=== PATIENT | female | born 1985 | race Caucasian/White ===

== ENCOUNTER 2023-01-15 20:30 | Outpatient (REF) | payer OTHER, SELFPAY ==
[2023-01-19 15:09] LABS: Age Gdln ACOG Testing Note (.); HPV Aptima Positive (Negative); IGP, Aptima HPV, rfx 16/18,45 Note (.)
== END 2023-01-15 20:31 | disposition home or self-care (01) ==
LOC: LAB 20:30
PROVIDERS: Visit Provider Obstetrics & Gynecology
DX: Z01.419 Encounter for gynecological examination (general) (routine) without abnormal findings (principal)
CPT/HCPCS: 87624; G0145

== ENCOUNTER 2023-02-26 11:22 | Outpatient (REF) | payer OTHER, SELFPAY ==
--- OUTSIDE RECORDS SUMMARY | 2023-04-20 11:25 | XMS_ITS | CCD ---
Author Name Unknown Address [address] [place] [address] Organization [facility] Care Team Providers Care Brand Mgr Name Role Phone JOAO, DR FRANCY Lomax Consulting Unavailable ALBERTO, DR BRYAN Attending Unavailable REQUEST, DR CASTELLANOS LISTED Primary Care Unavaila ble ALBERTO, DR BRYAN Admitting Unavailable ALBERTO, DR BRYAN Consulting Unavailable WEST, DR FRANCY Lomax Consulting Unavailable ALBERTO, DR BRYAN Attending Unavailable REQUEST, DR CASTELLANOS LISTED Primary Care Unavaila ble ALBERTO, DR BRYAN Admitting Unavailable ALBERTO, DR BRYAN Consulting Unavailable ALBERTO, DR BRYAN Attending Unavailable REQUEST, DR CASTELLANOS LISTED Primary Care Unavaila ble ALBERTO, DR BRYAN Admitting Unavailable ALBERTO, DR BRYAN Attending Unavailable REQUEST, DR CASTELLANOS LISTED Primary Care Unavaila ble ALBERTO, DR BRYAN Admitting Unavailable REQUEST, DR CASTELLANOS LISTED Primary Care Unavaila ble ALBERTO, DR BRYAN Consulting Unavailable ALBERTO, DR BRYAN Attending Unavailable ALBERTO, DR BRYAN Admitting Unavailable ALBERTO, DR BRYAN Attending Unavailable REQUEST, DR CASTELLANOS LISTED Primary Care Unavaila ble ALBERTO, DR BRYAN Admitting Unavailable ALBERTO, DR BRYAN Consulting Unavailable ALBERTO, DR BRYAN Attending Unavailable KARASIK, DR DU Consulting Unavailable REQUEST, DR CASTELLANOS LISTED Primary Care Unavaila ble ALBERTO, DR BRYAN Admitting Unavailable ALBERTO, DR BRYAN Consulting Unavailable ALBERTO, DR BRYAN Procedure Practitioner Unavailab le IRVIN DOMINGUEZ Attending Unavailable MALI CORCORAN Attending Unavailable ALBERTO, IRVIN Attending Unavailable IRVIN DOMINGUEZ Referring Unavailable Problems Active Problems Problem Classification Problem Date Documented Date Episodic/Chronic Esophageal disorders (1 source) Gastro-esophageal reflux disease without esophagitis; Translations: [GERD WITHOUT ESOPHAGITIS] Onset: 04-06-2021 Chronic Immunizations and screening for infectious disease (1 source) Encounter for screening for human papillomavirus (HPV); Translations: [ENC SCREENING HUMAN PAPILLOMAVIRUS] Onset: 01-06-2022 Episodic Other screening for suspected conditions (not mental disorders or infectious disease) (4 sources) Encounter for screening for malignant neoplasm of cervix; Translations: [ENC SCREENING MALIG NEOPLASM CERV] Onset: 01-03-2022 Episodic Unclassified (1 source) CONTACT W/AND (SUSP) EXPOS COVID-19; Translations: [CONTACT W/AND (SUSP) EXPOS COVID-19] Onset: 04-06-2021 Viral infection (1 source) Herpesviral infection of urogenital system, unspecified; Translations: [HERPESVIRAL INF UROGENITAL SYS UNS] Onset: 04-06-2021 Chronic Past or Other Problems Problem Classification Problem Date Documented Date Episodic/Chronic OB-related trauma to perineum and vulva (1 source) First degree perineal laceration during delivery; Translations: [FIRST DEG PERINEAL LAC DUR DELIV] Onset: 04-06-2021 Episodic Other complications of ; puerperium affecting management of mother (3 sources) Abnormality in heart rate and rhythm complicating labor and delivery; Translations: [ABN FETL HEART RATE RHYTHM COMP L AND D] Onset: 03-30-2021 Episodic Other complications of ; puerperium affecting management of mother (1 source) Other infections with a predominantly sexual mode of transmission complicating childbirth; Translations: [OTH INF SEXL TRNSMS COMP CHILDBIRTH] Onset: 04-06-2021 Episodic Other complications of ; puerperium affecting management of mother (1 source) Diseases of the digestive system complicating childbirth; Translations: [DZ DIGESTIVE SYSTEM COMP CHILDBIRTH] Onset: 04-06-2021 Episodic Other complications of (4 sources) Maternal care for abnormalities of the heart rate or rhythm, third trimester, not applicable or unspecified; Translations: [MTRN CARE ABN FHR/R 3RD TRI NA/UNS] Onset: 03-29-2021 Episodic Other and delivery including normal (13 sources) Encounter for care and examination of lactating mother; Translations: [Encounter for routine follow-up] Onset: 03-09-2021 Episodic Residual codes; unclassified (1 source) 39 weeks gestation of ; Translations: [39 WEEKS GESTATION OF ] Onset: 04-06-2021 Episodic Residual codes; unclassified (1 source) 38 weeks gestation of ; Translations: [38 WEEKS GESTATION OF ] Onset: 03-23-2021 Episodic Residual codes; unclassified (1 source) 36 weeks gestation of ; Translations: [36 WEEKS GESTATION OF ] Onset: 03-11-2021 Episodic Screening and history of mental health and substance abuse codes (1 source) Personal history of nicotine dependence; Translations: [PERSONAL HISTORY OF NICOTINE DEPEND] Onset: 04-06-2021 Episodic Results Test Name Value Interpretation Reference Range Facility US PELVISon 01-29-2023 US PELVIS US PELVIS : 01/30/20 23 11:27 AM CLINICAL HISTORY: pelvic pain. COMPARISON: None available. TECHNIQUE: Transabdominal ultrasound was performed of the pelvis. FINDINGS: The uterus is normal in appearance anteverted in position, measuring approximately 7.6 x 4.8 x 3 cm cm. The central endometrial complex is not thickened nearly homogeneous in echotexture, measuring 4 mm mm in combined thickness near the fundus. There is no significant free pelvic fluid or other findings of concern identified. The right ovary measures 2.1 x 2.1 x 1.1 cm, for a volume of approximately 2.5 mL. The left ovary measures 1.97 x 2.3 x 1.3 cm, for a volume of approximately 3.0 mL. There is equivalent blood flow to both ovaries on Doppler analysis. IMPRESSION: THE EXAMINATION IS UNREMARKABLE ELECTRONICALLY SIGNED BY: Avelina Nielson, DO Normal Not Available BI MAMMOGRAM SCREENING TOMOS SATURNINO BILATERALon 01-15-2023 BI MAMMOGRAM SCREENING TOMOSYNTHESIS BILATERAL This is a summary report. The complete report is available in the patient's medical record. If you cannot access the medical record, please contact the sending organization for a detailed fax or copy. EXAMINATION: BI MAMMOGRAM SCREENING TOMOSYNTHESIS BILATERAL CLINICAL HISTORY: screening COMPARISON: There are no previous mammograms available for comparison. RESULT: Digital mammography and 3D tomosynthesis of bilateral breasts was performed. There are scattered areas of fibroglandular density. There is no suspicious mass, asymmetry, architectural distortion, or calcification. IMPRESSION: BIRADS 1 - Negative. Follow-up: Routine Screening Mamm . Board Certified Radiologists. Accredited by the ACR and FDA. MAMMOGRAPHY IS VERY IMPORTANT TO YOUR HEALTH. THE [employer] GUIDELINES RECOMMEND THAT WOMEN 40 YEARS OF AGE AND OLDER SHOULD HAVE A MAMMOGRAM EVERY YEAR. A REMINDER LETTER WILL BE SENT AT THE APPROPRIATE TIME. THIS FACILITY UTILIZES A REMINDER SYSTEM TO ENSURE ALL PATIENTS RECEIVE REMINDER NOTIFICATIONS AT THE APPROPRIATE TIME BASED ON THE RECOMMENDATIONS OF THIS EXAM. THIS INCLUDES REMINDERS FOR ROUTINE SCREENING MAMMOGRAMS, DIAGNOSTIC MAMMOGRAMS IN WHICH THE PATIENT IS ASKED TO RETURN FOR ADDITIONAL VIEWS, OR OTHER BREAST IMAGING INTERVENTIONS WHEN APPROPRIATE. THE PATIENT WILL BE PLACED IN THE APPROPRIATE REMINDER SYSTEM INCLUDING A REMINDER AT THE APPROPRIATE TIME FOR ANY PENDING ADDITIONAL VIEWS. TRANSCRIBED BY: ELECTRONICALLY SIGNED BY: Leonard Finnegan MD Normal Not Available PAP ACOG PANEL 2: 30 to 65on 01-11-2022 . . Normal [facility] Comment on above: Result Comment: Perf ormed at: WB Performed By: #### [id number] #### [facility] [address] [address] [address] Airam Grant Age Gdln ACOG Testing - Normal [facility] Comment on above: Performed By: #### [id number] #### [facility] [address] [address] [address] Airam Grant DIAGNOSIS: Comment Normal [facility] Comment on above: Result Comment: NEGA TIVE FOR INTRAEPITHELIAL LESION OR MALIGNANCY. Performed at: WB Performed By: #### [id number] #### [facility] [address] [address] [address] Airam Grant HPV Aptima Negative Normal Negative [facility] Comment on above: Result Comment: This nucleic acid amplification test detects fourteen high-risk HPV types (16,18,31,33,35,39,45,51,52,56,58,59,66,68) without differentiation. Performed at: =G Performed By: #### [id number] #### [facility] [address] [address] [address] Airam Grant HPV Genotype Reflex Comment Normal [facility] Comment on above: Result Comment: Crit eria not met, HPV Genotype not performed. Performed at: WB Performed By: #### [id number] #### [facility] [address] [address] [address] Airam Grant Methodology: Comment Normal [facility] Comment on above: Result Comment: This liquid based ThinPrep(R) pap test was screened with the use of an image guided system. Performed at: WB Performed By: #### [id number] #### [facility] [address] [place] [address] Dr. Airam Grant Note: Comment Normal [facility] Comment on above: Result Comment: The Pap smear is a screening test designed to aid in the detection of premalignant and malignant conditions of the uterine cervix. It is not a diagnostic procedure and should not be used as the sole means of detecting cervical cancer. Both false-positive and false-negative reports do occur. . Performed at: WB Performed By: #### [id number] #### [facility] [address] [place] [address] Dr. Airam Grant Performed by: Comment Normal [facility] Comment on above: Result Comment: Jud Martin Certified Veterinary Technician (ASCP) Performed at: WB Performed By: #### [id number] #### [facility] [address] [place] [address] Dr. Airam Grant Specimen adequacy: Comment Normal [facility] Comment on above: Result Comment: Sati sfactory for evaluation. Endocervical and/or squamous metaplastic cells (endocervical component) are present. Performed at: WB Performed By: #### [id number] #### [facility] [address] [place] [address] Dr. Airam Grant CBC AUTO DIFFon 04-01-2021 BASO # 0.1 103/ul Normal 0.0-0.1 [facility] Comment on above: Performed By: #### C BC #### [facility] [address] [place] [address] Dr. Airam Grant Basophils/100 WBC (Bld) 0.4 % Normal 0.2-2.0 [facility] Comment on above: Performed By: #### C BC #### [facility] [address] [place] [address] Dr. Airam Grant EO # 0.1 103/ul Normal 0.0-0.7 [facility] Comment on above: Performed By: #### C BC #### [facility] [address] [place] [address] Dr. Airam Grant Eosinophils/100 WBC (Bld) 0.9 % Normal 0.9-7.0 [facility] Comment on above: Performed By: #### C BC #### [facility] [address] [place] [address] Dr. Airam Grant Erythrocyte distribution width (RBC) [Ratio] 14.6 % Normal 11.0-15.0 [facility] Comment on above: Performed By: #### C BC #### [facility] [address] [place] [address] Dr. Airam Grant Hematocrit (Bld) [Volume fraction] 32.9 % Critically low 36.0-48.0 [facility] Comment on above: Performed By: #### C BC #### [facility] [address] [place] [address] Dr. Airam Grant Hemoglobin (Bld) [Mass/Vol] 10.7 g/dL Critically low 12.0-16.0 [facility] Comment on above: Performed By: #### C BC #### [facility] [address] [place] [address] Dr. Airam Grant IG # 0.04 10e3/ul Critically high 0.00-0.03 [facility] Comment on above: Performed By: #### C BC #### [facility] [address] [place] [address] Dr. Airam Grant IG % 0.3 % Normal 0.0-0.5 [facility] Comment on above: Performed By: #### C BC #### [facility] [address] [place] [address] Dr. Airam Grant LYMPH # 2.2 103/ul Normal 1.2-3.8 [facility] Comment on above: Performed By: #### C BC #### [facility] [address] [place] [address] Dr. Airam Grant Lymphocytes/100 WBC (Bld) 18.9 % Critically low 20.5-60.0 [facility] Comment on above: Performed By: #### C BC #### [facility] [address] [place] [address] Dr. Airam Grant MANUAL DIFF REQ NO Normal [facility] Comment on above: Performed By: #### C BC #### [facility] [address] [place] [address] Dr. Airam Grant MCH (RBC) [Entitic mass] 28.5 pg Normal 26.7-34.0 [facility] Comment on above: Performed By: #### C BC #### [facility] [address] [place] [address] Dr. Airam Grant MCHC (RBC) [Mass/Vol] 32.5 g/dL Normal 29.9-35.2 [facility] Comment on above: Performed By: #### C BC #### [facility] [address] [place] [address] Dr. Airam Grant MCV (RBC) [Entitic vol] 87.7 fL Normal 81.0-99.0 [facility] Comment on above: Performed By: #### C BC #### [facility] [address] [place] [address] Dr. Airam Grant MONO # 0.6 103/ul Normal 0.3-0.8 [facility] Comment on above: Performed By: #### C BC #### [facility] [address] [place] [address] Dr. Airam Grant Monocytes/100 WBC (Bld) 5.0 % Normal 1.7-12.0 [facility] Comment on above: Performed By: #### C BC #### [facility] [address] [place] [address] Dr. Airam Grant NEUT # 8.7 103/ul Critically high 1.4-6.5 [facility] Comment on above: Performed By: #### C BC #### [facility] [address] [place] [address] Dr. Airam Grant Neutrophils/100 WBC (Bld) 74.5 % Normal 43.0-75.0 [facility] Comment on above: Performed By: #### C BC #### [facility] [address] [address] [address] Airam Grant Platelet mean volume (Bld) [Entitic vol] 10.0 fL Normal 9.5-13.5 [facility] Comment on above: Performed By: #### C BC #### [facility] [address] [place] [address] Dr. Airam Grant PLT 303 103/ul Normal 150-450 [facility] Comment on above: Performed By: #### C BC #### [facility] [address] [address] [address] Airam Grant RBC 3.75 106/ul Critically low 4.20-5.40 [facility] Comment on above: Performed By: #### C BC #### [facility] [address] [place] [address] Dr. Airam Grant WBC 11.6 103/ul Critically high 4.0-11.0 [facility] Comment on above: Performed By: #### C BC #### [facility] [address] [place] [address] Dr. Airam Grant LDHon 04-01-2021 LDH 233 U/L Critically high 122-222 [facility] Comment on above: Performed By: #### U YUNIOR, LDH, AST, ALT #### [facility] [address] [place] [address] Dr. Airam Grant SGOTon 04-01-2021 AST [Catalytic activity/Vol] 25 U/L Normal 14-36 [facility] Comment on above: Performed By: #### G BSCX #### [facility] [address] [place] [address] Dr. Airam Grant SGPTon 04-01-2021 ALT [Catalytic activity/Vol] 20 U/L Normal 9-52 [facility] Comment on above: Performed By: #### U YUNIOR, LDH, AST, ALT #### [facility] [address] [place] [address] Dr. Airam Grant URIC ACID SERUMon 04-01-2021 Urate [Mass/Vol] 4.1 mg/dL Normal 2.5-6.2 [facility] Comment on above: Performed By: #### U YUNIOR, LDH, AST, ALT #### [facility] [address] [place] [address] Dr. Airam Grant ASYMPTOMATIC COVID-19 ANTIGE Non 03-30-2021 EUA Statement SEE BELOW Normal [facility] Comment on above: Result Comment: This test has not been FDA cleared or approved, but has been authorized by the FDA under an Emergency Use Authorization (EUA) for use by authorized laboratories certified under CLIA that meet the requirements to perform moderate or high complexity testing. This test has been authorized only for the detection of proteins from SARS-CoV-2, not for any other viruses or pathogens. The emergency use of this test is authorized for the duration of the declaration that circumstances exist justifying the authorization of emergency use of in vitro diagnostic tests for detection and/or diagnosis of Covid-19 under section 564(b)(1) of the Act, 21 U.S.C. 360bbb-3(b)(1), unless the declaration is terminated or authorization is revoked sooner. Performed By: #### G BSCX #### [facility] [address] [place] [address] Dr. Airam Grant SARS-CoV-2 (COVID-19) RNA [place]+probe Ql (Unsp spec) Negative Normal NEGATIVE [facility] Comment on above: Result Comment: Nega tive results are presumptive. They do not preclude infection and should not be used as the sole basis for treatment decisions. Additional confirmatory testing by a molecular method should be considered. Performed By: #### G BSCX #### [facility] [address] [place] [address] Dr. Airam Grant CBC AUTO DIFFon 03-30-2021 BASO # 0.0 103/ul Normal 0.0-0.1 [facility] Comment on above: Performed By: #### C BC #### [facility] [address] [place] [address] Dr. Airam Grant Basophils/100 WBC (Bld) 0.3 % Normal 0.2-2.0 [facility] Comment on above: Performed By: #### C BC #### [facility] [address] [place] [address] Dr. Airam Grant EO # 0.2 103/ul Normal 0.0-0.7 [facility] Comment on above: Performed By: #### C BC #### [facility] [address] [place] [address] Dr. Airam Grant Eosinophils/100 WBC (Bld) 1.7 % Normal 0.9-7.0 [facility] Comment on above: Performed By: #### C BC #### [facility] [address] [place] [address] Dr. Airam Grant Erythrocyte distribution width (RBC) [Ratio] 14.4 % Normal 11.0-15.0 [facility] Comment on above: Performed By: #### C BC #### [facility] [address] [place] [address] Dr. Airam Grant Hematocrit (Bld) [Volume fraction] 35.1 % Critically low 36.0-48.0 [facility] Comment on above: Performed By: #### C BC #### [facility] [address] [place] [address] Dr. Airam Grant Hemoglobin (Bld) [Mass/Vol] 11.5 g/dL Critically low 12.0-16.0 [facility] Comment on above: Performed By: #### C BC #### [facility] [address] [place] [address] Dr. Airam Grant IG # 0.03 10e3/ul Normal 0.00-0.03 [facility] Comment on above: Performed By: #### C BC #### [facility] [address] [place] [address] Dr. Airam Grant IG % 0.3 % Normal 0.0-0.5 [facility] Comment on above: Performed By: #### C BC #### [facility] [address] [place] [address] Dr. Airam Grant LYMPH # 2.0 103/ul Normal 1.2-3.8 [facility] Comment on above: Performed By: #### C BC #### [facility] [address] [place] [address] Dr. Airam Grant Lymphocytes/100 WBC (Bld) 22.7 % Normal 20.5-60.0 [facility] Comment on above: Performed By: #### C BC #### [facility] [address] [place] [address] Dr. Airam Grant MANUAL DIFF REQ NO Normal [facility] Comment on above: Performed By: #### C BC #### [facility] [address] [place] [address] Dr. Airam Grant MCH (RBC) [Entitic mass] 28.8 pg Normal 26.7-34.0 [facility] Comment on above: Performed By: #### C BC #### [facility] [address] [place] [address] Dr. Airam Grant MCHC (RBC) [Mass/Vol] 32.8 g/dL Normal 29.9-35.2 [facility] Comment on above: Performed By: #### C BC #### [facility] [address] [place] [address] Dr. Airam Grant MCV (RBC) [Entitic vol] 88.0 fL Normal 81.0-99.0 [facility] Comment on above: Performed By: #### C BC #### [facility] [address] [place] [address] Dr. Airam Grant MONO # 0.5 103/ul Normal 0.3-0.8 [facility] Comment on above: Performed By: #### C BC #### [facility] [address] [place] [address] Dr. Airam Grant Monocytes/100 WBC (Bld) 5.5 % Normal 1.7-12.0 [facility] Comment on above: Performed By: #### C BC #### [facility] [address] [place] [address] Dr. Airam Grant NEUT # 6.3 103/ul Normal 1.4-6.5 [facility] Comment on above: Performed By: #### C BC #### [facility] [address] [place] [address] Dr. Airam Grant Neutrophils/100 WBC (Bld) 69.5 % Normal 43.0-75.0 [facility] Comment on above: Performed By: #### C BC #### [facility] [address] [address] [address] Airam Grant Platelet mean volume (Bld) [Entitic vol] 10.5 fL Normal 9.5-13.5 [facility] Comment on above: Performed By: #### C BC #### [facility] [address] [address] [address] Airam Grant PLT 321 103/ul Normal 150-450 [facility] Comment on above: Performed By: #### C BC #### [facility] [address] [address] [address] Airam Grant RBC 3.99 106/ul Critically low 4.20-5.40 [facility] Comment on above: Performed By: #### C BC #### [facility] [address] [address] [address] Airam Grant WBC 9.0 103/ul Normal 4.0-11.0 [facility] Comment on above: Performed By: #### C BC #### [facility] [address] [address] [address] Airam Grant DRUG SCREEN RAPID (URINE)on 03-30-2021 AMP Negative Normal NEGATIVE [facility] Comment on above: Performed By: #### D RUGRPD #### [facility] [address] [address] [address] Airam Grant BAR Negative Normal NEGATIVE [facility] Comment on above: Performed By: #### D RUGRPD #### [facility] [address] [address] [address] Airam Grant BUP Negative Normal NEGATIVE The [facility] Comment on above: Performed By: #### D RUGRPD #### [facility] [address] [address] [address] Airam Grant BZO Negative Normal NEGATIVE [facility] Comment on above: Performed By: #### D RUGRPD #### [facility] [address] [place] [address] Dr. Airam Grant ALEXANDRA Negative Normal NEGATIVE [facility] Comment on above: Performed By: #### D RUGRPD #### [facility] [address] [place] [address] Dr. Airam Grant CUT-OFFS SEE BELOW Normal [facility] Comment on above: Result Comment: AMP (Amphetamine): 500ng/mL, BAR (Barbituates): 200 ng/mL, BZO (Benzodiazepines): 150 ng/mL, BUP (Buprenorphine): 10 ng/mL, ALEXANDRA (Cocaine): 150 ng/mL, mAMP (Methamphetamine): 500 ng/mL, MTD (Methadone): 200 ng/mL, OPI (Opiates): 100 ng/mL, OXY (Oxycodone): 100 ng/mL, PCP (Phencyclidine): 25 ng/mL, PPX (Propoxyphene): 300 ng/mL, THC (Cannabinoids): 50 ng/mL, TCA (Trycyclic Antidepressants): 300 ng/mL Performed By: #### D RUGRPD #### [facility] [address] [place] [address] Dr. Airam Grant DRUG CUT HEADER DRUG CLASS TEST SYST EM CUT-OFF CONCENTRATIONS ARE FOLLOWS: Normal [facility] Comment on above: Performed By: #### D RUGRPD #### [facility] [address] [place] [address] Dr. Airam Grant mAMP Negative Normal NEGATIVE [facility] Comment on above: Performed By: #### D RUGRPD #### [facility] [address] [place] [address] Dr. Airam Grant MTD Negative Normal NEGATIVE [facility] Comment on above: Performed By: #### D RUGRPD #### [facility] [address] [place] [address] Dr. Airam Grant OPI Negative Normal NEGATIVE [facility] Comment on above: Performed By: #### D RUGRPD #### [facility] [address] [place] [address] Dr. Airam Grant OXY Negative Normal NEGATIVE [facility] Comment on above: Performed By: #### D RUGRPD #### [facility] [address] [place] [address] Dr. Airam Grant PCP Negative Normal NEGATIVE [facility] Comment on above: Performed By: #### D RUGRPD #### [facility] [address] [place] [address] Dr. Airam Grant PPX Negative Normal NEGATIVE [facility] Comment on above: Performed By: #### D RUGRPD #### [facility] [address] [place] [address] Dr. Airam Grant TCA Negative Normal NEGATIVE [facility] Comment on above: Performed By: #### D RUGRPD #### [facility] [address] [place] [address] Dr. Airam Grant THC Negative Normal NEGATIVE [facility] Comment on above: Performed By: #### D RUGRPD #### [facility] [address] [place] [address] Dr. Airam Grant TYPE AND SCREENon 03-30-2021 TYPE AND SCREEN Negative Normal [facility] Comment on above: Performed By: #### T NS #### [facility] [address] [place] [address] Dr. Airam Grant [facility] BI[facility] W NST This study was read during a downtime in the [employer] PACS system. The actual time dictated and approved is in the body of the report. PROCEDURE: ULTRASOUND BIOPHYSICAL WITH NON STRESS TEST COMPARISON: US PREG BIOPHY W NST, 03/22/2021. INDICATIONS: Bradycardia TECHNIQUE: Ultrasound biophysical profile was performed in the radiology department. non reactive stress testing was performed by nursing staff in the birthing center. FINDINGS: BREATHING MOVEMENTS: 2 GROSS BODY MOVEMENTS: 2 TONE: 2 QUALITATIVE AMNIOTIC FLUID VOLUME: 2 PRESENTATION: Cephalic HEART RATE: 103.94 H.B./min AMNIOTIC FLUID VOLUME: 12.62 cm GESTATIONAL AGE: 39 weeks 1 day CONCLUSION: 1. Total biophysical profile score 8. Dictated by: Francy Shepherd MD on 03/29/2021 at 14:08 Approved by: Francy Shepherd MD on 03/29/2021 at 14:10 Electronically authenticated by: FRANCY SHEPHERD Date: 2021-03-30 11:35 Normal [facility] US PREG BIOPHY W NON STRESSo n 03-22-2021 US PREG BIOPHY W NON STRESS EXAMINATION: US PREG BIOPHY W NON STRESS HISTORY: Labor and delivery complicated by heart rate anomaly COMPARISON: No relevant comparison available. TECHNIQUE: Ultrasound biophysical profile was performed in the radiology department. FINDINGS: BREATHING MOVEMENTS: 2.0 GROSS BODY MOVEMENTS: 2.0 TONE: 2.0 QUALITATIVE AMNIOTIC FLUID VOLUME: 2.0 PRESENTATION: Cephalic HEART RATE: 119.8 bpm H.B./min AMNIOTIC FLUID VOLUME: 13.2 cm cm GESTATIONAL AGE: 38 weeks 1 days CONCLUSION: Total biophysical profile score: 8.0 Electronically authenticated by: FRANCY SHEPHERD Date: 2021-03-22 13:28 Normal [facility] GROUP B STREP CULTUREon 02-19 S. agalactiae Ag Ql (Unsp spec) Culture Observations: NEGATIVE FOR GROUP B STREPTOCOCCUS. Normal [facility] Comment on above: Performed By: #### G BSCX #### [facility] [address] [place] [address] Dr. Airam Grant Encounters Encounter Date Encounter Type Care Provider Facility Start: 02-26-2023 End: 02-26-2023 ambulatory IRVIN DOMINGUEZ Not Available Start: 01-29-2023 End: 01-30-2023 ambulatory IRVIN DOMINGUEZ Not Available Start: 01-15-2023 End: 01-15-2023 ambulatory IRVIN DOMINGUEZ Not Available Start: 12-26-2022 End: 12-27-2022 ambulatory MALI CORCORAN Not Available Start: 01-03-2022 End: 01-03-[address] IRVIN DOMINGUEZ Facility:[facility] Start: 04-14-2021 End: 04-14-[address] IRVIN DOMINGUEZ Facility:[facility] Start: 04-06-2021 End: 04-06-[address] IRVIN DOMINGUEZ Facility:[facility] Start: 03-30-2021 End: 04-01-2021 Evaluation and management of inpatient DR IRVIN DOMINGUEZ Facility:[facility] Start: 03-29-2021 End: 03-29-[address] FRANCY SHEPHERD Facility:[facility] Start: 03-22-2021 End: 03-22-[address] FRANCY SHEPHERD Facility:[facility] Start: 03-09-2021 End: 03-09-[address] CASTELLANOS LISTED REQUEST Facility:[facility] Procedures Date Procedure Procedure Detail Performing Clinician Start: 03-31-2021 Delivery of Products of Conception, External Approach DR FRANCY SHEPHERD Start: 03-31-2021 Drainage of Amniotic Fluid, Therapeutic from Products of Conception, Via Natural or Artificial Opening DR FRANCY SHEPHERD Start: 03-31-2021 Repair Perineum Skin , External Approach DR FRANCY SHEPHERD Start: 03-30-2021 Introduction of Horm one into Female Reproductive, Via Natural or Artificial Opening DR FRANCY SHEPHERD Payers Date Payer Category Payer Unknown [id number] 2.16.84 [id number] 1986 Unknown [id number] 2.16.84 [id number] 1986 Unknown [id number] 2.16.84 [id number] 1986 Unknown [id number] 2.16.84 [id number] 1986 Unknown [id number] 2.16.84 [id number] 1986 Unknown [id number] 2.16.84 [id number] 1986 Unknown [id number] 2.16.84 [id number] 1986 Unknown [id number] 2.16.840 .[id number] 1986 Unknown [id number] 2.16.840 .1.805103.3.579.2.1259 1986 Unknown [id number] 2.16.840 .1.065092.3.579.2.1259 1986 Unknown [id number] 2.16.840 .[id number] 1986 Unknown [id number] 2.16.840.1 .[id number] 1959 Unknown [id number] 1959 Unknown [id number] Summary Purpose Family History No Family History Records FoundNo Family History Records Found Advance Directives No Advanced Directives Records FoundNo Advanced Directives Records Found Additional Source Comments INFORMATION SOURCE (unrecogn ized section and content) DATE CREATED AUTHOR 01/11/2022 [facility] DATE CREATED AUTHOR AUTHOR'S ORGANIZ ATION 02/26/2023 [facility] EPIC FOR RECORDS PERTAINING TO PATIENTS WHO ARE OR HAVE BEEN ENROLLED IN A CHEMICAL DEPENDENCY/SUBSTANCEABUSE PROGRAM, SOME INFORMATION MAY BE OMITTED. This clinical summary was aggregated from multiple sources. Caution should be exercised in using it in the provision of clinical care. This summary normalizes information from multiple sources, and as a consequence, information in this document may materially change the coding, format and clinical context of patient data. In addition, data may be omitted in some cases. CLINICAL DECISIONS SHOULD BE BASED ON THE PRIMARY CLINICAL RECORDS. [facility] [employer] provides no warranty or guarantee of the accuracy or completeness of information in this document.
== END 2023-02-26 11:23 | disposition home or self-care (01) ==
LOC: LAB 11:22
PROVIDERS: Visit Provider Obstetrics & Gynecology
DX: R87.810 Cervical high risk human papillomavirus (HPV) DNA test positive (principal)
CPT/HCPCS: 88305; 88341; 88342

== ENCOUNTER 2023-08-30 20:23 | Outpatient (REF) | payer OTHER, SELFPAY ==
[2023-09-04 16:10] LABS: HPV Aptima Negative (Negative); Pap IG (Image Guided) Note (.)
== END 2023-08-30 20:24 | disposition home or self-care (01) ==
LOC: LAB 20:23
PROVIDERS: Visit Provider Obstetrics & Gynecology
DX: R87.610 Atypical squamous cells of undetermined significance on cytologic smear of cervix (ASC-US) (principal); R87.810 Cervical high risk human papillomavirus (HPV) DNA test positive
CPT/HCPCS: 87624; 88175

== ENCOUNTER 2024-03-24 21:36 | Outpatient (REF) | payer OTHER, SELFPAY ==
--- OUTSIDE RECORDS SUMMARY | 2024-03-24 21:39 | XMS_ITS | CCD ---
Author Organization [facility] Care Team Providers Care Optical Scientist Name Role Phone JOAO, DR FRANCY Lomax Consulting Unavailable JIMY, DR BRYAN Attending Unavailable REQUEST, DR CASTELLANOS LISTED Primary Care Unavaila ble JIMY, DR BRYAN Admitting Unavailable JIMY, DR BRYAN Consulting Unavailable WEST, DR FRANCY Lomax Consulting Unavailable JIMY, DR BRYAN Attending Unavailable REQUEST, DR CASTELLANOS LISTED Primary Care Unavaila ble JIMY, DR BRYAN Admitting Unavailable JIMY, DR BRYAN Consulting Unavailable JIMY, DR BRYAN Attending Unavailable REQUEST, DR CASTELLANOS LISTED Primary Care Unavaila ble JIMY, DR BRYAN Admitting Unavailable JIMY, DR BRYAN Attending Unavailable REQUEST, DR CASTELLANOS LISTED Primary Care Unavaila ble JIMY, DR BRYAN Admitting Unavailable REQUEST, DR CASTELLANOS LISTED Primary Care Unavaila ble JIMY, DR BRYAN Consulting Unavailable JIMY, DR BRYAN Attending Unavailable JIMY, DR BRYAN Admitting Unavailable JIMY, DR BRYAN Attending Unavailable REQUEST, DR CASTELLANOS LISTED Primary Care Unavaila ble JIMY, DR BRYAN Admitting Unavailable JIMY, DR BRYAN Consulting Unavailable JIMY, DR BRYAN Attending Unavailable KARASIK, DR DU Consulting Unavailable REQUEST, DR CASTELLANOS LISTED Primary Care Unavaila ble JIMY, DR BRYAN Admitting Unavailable JIMY, DR BRYAN Consulting Unavailable JIMY, DR BRYAN Procedure Practitioner Unavailab IRVIN Nelson Attending Unavailable LOIS CORCORAN Attending Unavailable JIMYIRVIN CLARKE Attending Unavailable JIMY, IRVIN Attending Unavailable IRVIN AHN Referring Unavailable Kenya Lweis MD Primary Care Provider [phone] Medications Current Medications Medication Drug Class(es) Dates Sig (Normalized) Sig (Original) drospirenone 3 mg / ethinyl estradiol 0.02 mg oral tablet (1 source) Progestin, Estrogen Start: 04-17-2023 End: 04-16-2024 drospirenone-ethin yl estradiol (Bao Payne) 3-0.02 MG tablet Indications: Uses control Take 1 tablet by mouth Daily Take as directed 72 tablet 4 04/17/2023 04/16/2024 Active Problems Active Problems Problem Classification Problem Date Documented Date Episodic/Chronic Esophageal disorders (1 source) Gastro-esophageal reflux disease without esophagitis; Translations: [GERD WITHOUT ESOPHAGITIS] Onset: 04-06-2021 Chronic Headache; including migraine (1 source) Menstrual migraine; Translations: [Menstrual migraine, intractable, without status migrainosus] Onset: 12-26-2022 12-26-2022 Chronic Immunizations and screening for infectious disease [...] Other Problems Problem Classification Problem Date Documented Da te Episodic/Chronic 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 THE [employer] GUIDELINES RECOMMEND THAT WOMEN 40 [...] 30 to 65on 01-11-2022 . . Normal [facility] Comment on above: Result Comment: Perf ormed at: WB Performed By: #### [id number] #### [facility] [address] [address] [address] Airam Grant Age Gdln ACOG Testing 30-65 Normal [facility] Comment on above: Performed By: #### [id number] #### [facility] [address] [address] [address] Airam Grant DIAGNOSIS: Comment Normal [facility] Comment on above: Result Comment: NEGA TIVE FOR INTRAEPITHELIAL LESION OR MALIGNANCY. Performed at: WB Performed By: #### [id number] #### [facility] [address] [place] [address] Dr. Airam Grant HPV Aptima Negative Normal Negative [facility] Comment on above: Result Comment: This nucleic acid amplification test detects fourteen high-risk HPV types (16,18,31,33,35,39,45,51,52,56,58,59,66,68) without differentiation. Performed at: =G Performed By: #### [id number] #### [facility] [address] [address] [address] Airam Grant HPV Genotype Reflex Comment Normal [facility] Comment on above: Result Comment: Crit eria not met, HPV Genotype not performed. Performed at: WB Performed By: #### [id number] #### [facility] [address] [place] [address] Dr. Airam Grant Methodology: Comment Normal [facility] Comment on above: Result Comment: This liquid based ThinPrep(R) pap test was screened with the use of an image guided system. Performed at: WB Performed By: #### [id number] #### [facility] [address] [place] [address] Dr. Airam Grant Note: Comment Normal [facility] Comment on above: Result Comment: The Pap smear is a screening test designed to aid in the detection of premalignant and malignant conditions of the uterine cervix. It is not a diagnostic procedure and should not be used as the sole means of detecting cervical cancer. Both false-positive and false-negative reports do occur. . Performed at: WB Performed By: #### [id number] #### [facility] [address] [place] [address] Dr. Airam Grant Performed by: Comment Normal [facility] Comment on above: Result Comment: Jud Martin Accounts Payables Clerk (ASCP) Performed at: WB Performed By: #### [id number] #### [facility] [address] [place] [address] Dr. Airam Grant Specimen adequacy: Comment Normal [facility] Comment on above: Result Comment: Sati sfactory for evaluation. Endocervical and/or squamous metaplastic cells (endocervical component) are present. Performed at: WB Performed By: #### [id number] #### [facility] [address] [place] [address] Dr. Airam Grant CBC AUTO DIFFon 04-01-2021 BASO # 0.1 103/ul Normal 0.0-0.1 [facility] Comment on above: Performed By: #### C BC #### [facility] [address] [place] [address] Dr. Airam Grant Basophils/100 WBC (Bld) 0.4 % Normal 0.2-2.0 [facility] Comment on above: Performed By: #### C BC #### [facility] [address] [place] [address] Dr. Airam Grant EO # 0.1 103/ul Normal 0.0-0.7 [facility] Comment on above: Performed By: #### C BC #### [facility] [address] [place] [address] Dr. Airam Grant Eosinophils/100 WBC (Bld) 0.9 % Normal 0.9-7.0 [facility] Comment on above: Performed By: #### C BC #### [facility] [address] [place] [address] Dr. Airam Grant Erythrocyte distribution width (RBC) [Ratio] 14.6 % Normal 11.0-15.0 [facility] Comment on above: Performed By: #### C BC #### [facility] [address] [place] [address] Dr. Airam Grant Hematocrit (Bld) [Volume fraction] 32.9 % Critically low 36.0-48.0 [facility] Comment on above: Performed By: #### C BC #### [facility] [address] [place] [address] Dr. Airam Grant Hemoglobin (Bld) [Mass/Vol] 10.7 g/dL Critically low 12.0-16.0 [facility] Comment on above: Performed By: #### C BC #### [facility] [address] [place] [address] Dr. Airam Grant IG # 0.04 10e3/ul Critically high 0.00-0.[address] [facility] Comment on above: Performed By: #### C BC #### [facility] [address] [place] [address] Dr. Airam Grant IG % 0.3 % Normal 0.0-0.5 [facility] Comment on above: Performed By: #### C BC #### [facility] [address] [place] [address] Dr. Airam Grant LYMPH # 2.2 103/ul Normal 1.2-3.8 [facility] Comment on above: Performed By: #### C BC #### [facility] [address] [place] [address] Dr. Airam Grant Lymphocytes/100 WBC (Bld) 18.9 % Critically low 20.5-60.0 [facility] Comment on above: Performed By: #### C BC #### [facility] [address] [place] [address] Dr. Airam Grant MANUAL DIFF REQ NO Normal [facility] Comment on above: Performed By: #### C BC #### [facility] [address] [place] [address] Dr. Airam Grant MCH (RBC) [Entitic mass] 28.5 pg Normal 26.7-34.0 [facility] Comment on above: Performed By: #### C BC #### [facility] [address] [place] [address] Dr. Airam Grant MCHC (RBC) [Mass/Vol] 32.5 g/dL Normal 29.9-35.2 [facility] Comment on above: Performed By: #### C BC #### [facility] [address] [place] [address] Dr. Airam Grant MCV (RBC) [Entitic vol] 87.7 fL Normal 81.0-99.0 [facility] Comment on above: Performed By: #### C BC #### [facility] [address] [place] [address] Dr. Airam Grant MONO # 0.6 103/ul Normal 0.3-0.8 [facility] Comment on above: Performed By: #### C BC #### [facility] [address] [address] [address] Airam Grant Monocytes/100 WBC (Bld) 5.0 % Normal 1.7-12.0 [facility] Comment on above: Performed By: #### C BC #### [facility] [address] [address] [address] Airam Grant NEUT # 8.7 103/ul Critically high 1.4-6.5 [facility] Comment on above: Performed By: #### C BC #### [facility] [address] [address] [address] Airam Grant Neutrophils/100 WBC (Bld) 74.5 % Normal 43.0-75.0 [facility] Comment on above: Performed By: #### C BC #### [facility] [address] [place] [address] Dr. Airam Grant Platelet mean volume (Bld) [Entitic vol] 10.0 fL Normal 9.5-13.5 [facility] Comment on above: Performed By: #### C BC #### [facility] [address] [place] [address] Dr. Airam Grant PLT 303 103/ul Normal 150-450 [facility] Comment on above: Performed By: #### C BC #### [facility] [address] [place] [address] Dr. Airam Grant RBC 3.75 106/ul Critically low 4.20-5.40 [facility] Comment on above: Performed By: #### C BC #### [facility] [address] [place] [address] Dr. Airam Grant WBC 11.6 103/ul Critically high 4.0-11.0 [facility] Comment on above: Performed By: #### C BC #### [facility] [address] [place] [address] Dr. Airam Grant LDHon 04-01-2021 LDH 233 U/L Critically high 122-222 [facility] Comment on above: Performed By: #### U YUNIOR, LDH, AST, ALT #### [facility] [address] [place] [address] Dr. Airam Grant SGOTon 04-01-2021 AST [Catalytic activity/Vol] 25 U/L Normal 14-36 [facility] Comment on above: Performed By: #### G BSCX #### [facility] [address] [place] [address] Dr. Airam Grant SGPTon 04-01-2021 ALT [Catalytic activity/Vol] 20 U/L Normal 9-52 [facility] Comment on above: Performed By: #### U YUNIOR, LDH, AST, ALT #### [facility] [address] [place] [address] Dr. Airam Grant URIC ACID SERUMon 04-01-2021 Urate [Mass/Vol] 4.1 mg/dL Normal 2.5-6.2 [facility] Comment on above: Performed By: #### U YUNIOR, LDH, AST, ALT #### [facility] [address] [place] [address] Dr. Airam Grant ASYMPTOMATIC COVID-19 ANTIGE Non 03-30-2021 EUA Statement SEE BELOW Normal [facility] Comment on above: Result Comment: This [...] sooner. Performed By: #### G BSCX #### [facility] [address] [place] [address] Dr. Airam Grant SARS-CoV-2 (COVID-19) RNA [place]+probe Ql (Unsp spec) Negative Normal NEGATIVE [facility] Comment on above: Result Comment: Nega tive results are presumptive. They do not preclude infection and should not be used as the sole basis for treatment decisions. Additional confirmatory testing by a molecular method should be considered. Performed By: #### G BSCX #### [facility] [address] [place] [address] Dr. Airam Grant CBC AUTO DIFFon 03-30-2021 BASO # 0.0 103/ul Normal 0.0-0.1 [facility] Comment on above: Performed By: #### C BC #### [facility] [address] [place] [address] Dr. Airam Grant Basophils/100 WBC (Bld) 0.3 % Normal 0.2-2.0 [facility] Comment on above: Performed By: #### C BC #### [facility] [address] [place] [address] Dr. Airam Grant EO # 0.2 103/ul Normal 0.0-0.7 [facility] Comment on above: Performed By: #### C BC #### [facility] [address] [place] [address] Dr. Airam Grant Eosinophils/100 WBC (Bld) 1.7 % Normal 0.9-7.0 [facility] Comment on above: Performed By: #### C BC #### [facility] [address] [place] [address] Dr. Airam Grant Erythrocyte distribution width (RBC) [Ratio] 14.4 % Normal 11.0-15.0 [facility] Comment on above: Performed By: #### C BC #### [facility] [address] [place] [address] Dr. Airam Grant Hematocrit (Bld) [Volume fraction] 35.1 % Critically low 36.0-48.0 [facility] Comment on above: Performed By: #### C BC #### [facility] [address] [place] [address] Dr. Airam Grant Hemoglobin (Bld) [Mass/Vol] 11.5 g/dL Critically low 12.0-16.0 [facility] Comment on above: Performed By: #### C BC #### [facility] [address] [place] [address] Dr. Airam Grant IG # 0.03 10e3/ul Normal 0.00-0.03 [facility] Comment on above: Performed By: #### C BC #### [facility] [address] [place] [address] Dr. Airam Grant IG % 0.3 % Normal 0.0-0.5 [facility] Comment on above: Performed By: #### C BC #### [facility] [address] [place] [address] Dr. Airam Grant LYMPH # 2.0 103/ul Normal 1.2-3.8 [facility] Comment on above: Performed By: #### C BC #### [facility] [address] [place] [address] Dr. Airam Grant Lymphocytes/100 WBC (Bld) 22.7 % Normal 20.5-60.0 [facility] Comment on above: Performed By: #### C BC #### [facility] [address] [place] [address] Dr. Airam Grant MANUAL DIFF REQ NO Normal [facility] Comment on above: Performed By: #### C BC #### [facility] [address] [place] [address] Dr. Airam Grant MCH (RBC) [Entitic mass] 28.8 pg Normal 26.7-34.0 [facility] Comment on above: Performed By: #### C BC #### [facility] [address] [place] [address] Dr. Airam Grant MCHC (RBC) [Mass/Vol] 32.8 g/dL Normal 29.9-35.2 [facility] Comment on above: Performed By: #### C BC #### [facility] [address] [place] [address] Dr. Airam Grant MCV (RBC) [Entitic vol] 88.0 fL Normal 81.0-99.0 [facility] Comment on above: Performed By: #### C BC #### [facility] [address] [address] [address] Airam Grant MONO # 0.5 103/ul Normal 0.3-0.8 [facility] Comment on above: Performed By: #### C BC #### [facility] [address] [address] [address] Airam Grant Monocytes/100 WBC (Bld) 5.5 % Normal 1.7-12.0 [facility] Comment on above: Performed By: #### C BC #### [facility] [address] [place] [address] Dr. Airam Grant NEUT # 6.3 103/ul Normal 1.4-6.5 [facility] Comment on above: Performed By: #### C BC #### [facility] [address] [place] [address] Dr. Airam Grant Neutrophils/100 WBC (Bld) 69.5 % Normal 43.0-75.0 [facility] Comment on above: Performed By: #### C BC #### [facility] [address] [place] [address] Dr. Airam Grant Platelet mean volume (Bld) [Entitic vol] 10.5 fL Normal 9.5-13.5 [facility] Comment on above: Performed By: #### C BC #### [facility] [address] [place] [address] Dr. Airam Grant PLT 321 103/ul Normal 150-450 [facility] Comment on above: Performed By: #### C BC #### [facility] [address] [place] [address] Dr. Airam Grant RBC 3.99 106/ul Critically low 4.20-5.40 [facility] Comment on above: Performed By: #### C BC #### [facility] [address] [place] [address] Dr. Airam Grant WBC 9.0 103/ul Normal 4.0-11.0 [facility] Comment on above: Performed By: #### C BC #### [facility] [address] [place] [address] Dr. Airam Grant DRUG SCREEN RAPID (URINE)on 03-30-2021 AMP Negative Normal NEGATIVE [facility] Comment on above: Performed By: #### D RUGRPD #### [facility] [address] [place] [address] Dr. Airam Grant BAR Negative Normal NEGATIVE [facility] Comment on above: Performed By: #### D RUGRPD #### [facility] [address] [place] [address] Dr. Airam Grant BUP Negative Normal NEGATIVE [facility] Comment on above: Performed By: #### D RUGRPD #### [facility] [address] [place] [address] Dr. Airam Grant BZO Negative Normal NEGATIVE [facility] Comment on above: Performed By: #### D RUGRPD #### [facility] [address] [place] [address] Dr. Airam Grant ALEXANDRA Negative Normal NEGATIVE [facility] Comment on above: Performed By: #### D RUGRPD #### [facility] [address] [place] [address] Dr. Airam Grant CUT-OFFS SEE BELOW Normal [facility] Comment on above: Result Comment: AMP (Amphetamine): 500ng/mL, BAR (Barbituates): 200 ng/mL, BZO (Benzodiazepines): 150 ng/mL, BUP (Buprenorphine): 10 ng/mL, ALEXANDRA (Cocaine): 150 ng/mL, mAMP (Methamphetamine): 500 ng/mL, MTD (Methadone): 200 ng/mL, OPI (Opiates): 100 ng/mL, OXY (Oxycodone): 100 ng/mL, PCP (Phencyclidine): 25 ng/mL, PPX (Propoxyphene): 300 ng/mL, THC (Cannabinoids): 50 ng/mL, TCA (Trycyclic Antidepressants): 300 ng/mL Performed By: #### D RUGRPD #### [facility] [address] [place] [address] Dr. Airam Grant DRUG CUT HEADER DRUG CLASS TEST SYST EM CUT-OFF CONCENTRATIONS ARE FOLLOWS: Normal [facility] Comment on above: Performed By: #### D RUGRPD #### [facility] [address] [address] [address] Airam Grant mAMP Negative Normal NEGATIVE [facility] Comment on above: Performed By: #### D RUGRPD #### [facility] [address] [address] [address] Airam Grant MTD Negative Normal NEGATIVE [facility] Comment on above: Performed By: #### D RUGRPD #### [facility] [address] [address] [address] Airam Grant OPI Negative Normal NEGATIVE [facility] Comment on above: Performed By: #### D RUGRPD #### [facility] [address] [place] [address] Dr. Airam Grant OXY Negative Normal NEGATIVE [facility] Comment on above: Performed By: #### D RUGRPD #### [facility] [address] [place] [address] Dr. Airam Grant PCP Negative Normal NEGATIVE [facility] Comment on above: Performed By: #### D RUGRPD #### [facility] [address] [place] [address] Dr. Airam Grant PPX Negative Normal NEGATIVE [facility] Comment on above: Performed By: #### D RUGRPD #### [facility] [address] [place] [address] Dr. Airam Grant TCA Negative Normal NEGATIVE [facility] Comment on above: Performed By: #### D RUGRPD #### [facility] [address] [place] [address] Dr. Airam Grant THC Negative Normal NEGATIVE [facility] Comment on above: Performed By: #### D RUGRPD #### [facility] [address] [place] [address] Dr. Airam Grant TYPE AND SCREENon 03-30-2021 TYPE AND SCREEN Negative Normal [facility] Comment on above: Performed By: #### T NS #### [facility] [address] [place] [address] Dr. Airam Grant US PREG BIOPHY W NSTon 03-30 US PREG BIOPHY W NST This study was read during a downtime in the [employer] PACS system. The actual time dictated and [...] FRANCY SHEPHERD Date: 2021-03-30 11:35 Normal [facility] US PREG BIOPHY W NON [...] FRANCY SHEPHERD Date: 2021-03-22 13:28 Normal [facility] GROUP B STREP CULTUREon 02-19 S. agalactiae Ag Ql (Unsp spec) Culture Observations: NEGATIVE FOR GROUP B STREPTOCOCCUS. Normal [facility] Comment on above: Performed By: #### G BSCX #### [facility] [address] [place] [address] Dr. Airam Grant Vital Signs Date Time Vital Sign Value Performing Clinician Faci lity 02-22-2024 09:50-0500 Body height 160.02 cm [facility] 02-22-2024 09:50-0500 Body mass index (BMI) [Ratio] 26.9 kg/m2 [facility] 02-22-2024 09:50-0500 Body temperature 99.6 [degF] [facility] 02-22-2024 09:50-0500 Body weight 69 kg [facility] 02-22-2024 09:50-0500 Diastolic blood pressure 86 mm[Hg] [facility] 02-22-2024 09:50-0500 Heart rate 73 /min [facility] 02-22-2024 09:50-0500 Respiratory rate 18 /min [facility] 02-22-2024 09:50-0500 SaO2% (BldA) [Mass fraction] 98 % [facility] 02-22-2024 09:50-0500 Systolic blood pressure 131 mm[Hg] [facility] Encounters Encounter Date Encounter Type Care Provider Facility Start: 03-24-2024 End: 03-24-2024 Bamboo flowsheet Irvin Jimy DO Work Phone: [facility] Start: 03-24-2024 End: 03-24-2024 Bamboo flowsheet Rivin Jimy DO Work Phone: [facility] Start: 02-22-2024 End: 02-22-2024 ambulatory [facility] Work Phone: Start: 02-22-2024 End: 02-22-2024 Patient encounter procedure [facility] Work Phone: Start: 08-30-2023 End: 08-30-2023 ambulatory IRVIN JIMY Not Available Start: 02-26-2023 End: 02-26-2023 ambulatory IRVIN JIMY Not Available Start: 01-29-2023 End: 01-29-2023 ambulatory IRVIN JIMY Not Available Start: 01-15-2023 End: 01-15-2023 ambulatory IRVIN JIMY Not Available Start: 12-26-2022 End: 12-26-2022 ambulatory LOIS CORCORAN Not Available Start: 01-03-2022 End: 01-03-[address] IRVIN AHN Facility:[facility] Start: 04-14-2021 End: 04-14-[address] IRVIN AHN Facility:[facility] Start: 04-06-2021 End: 04-06-[address] IRVIN AHN Facility:[facility] Start: 03-30-2021 End: 04-01-2021 Evaluation and management of inpatient DR IRVIN AHN Facility:[facility] Start: 03-29-2021 End: 03-29-[address] FRANCY SHEPHERD Facility:[facility] Start: 03-22-2021 End: 03-22-[address] FRANCY SHEPHERD Facility:[facility] Start: 03-09-2021 End: 03-09-2021 ambulatory NONE LISTED REQUEST Facility:[facility] Procedures Date Procedure Procedure Detail Performing Clinician Start: 08-30-2023 Microscopic observat ion [Identifier] in Cervix by Cyto stain Irvin Ahn DO Work Phone: Start: 03-31-2021 Delivery of Products of Conception, External Approach DR FRANCY SHEPHERD Start: 03-31-2021 Drainage of Amniotic Fluid, Therapeutic from Products of Conception, Via Natural or Artificial Opening DR FRANCY SHEPHERD Start: 03-31-2021 Repair Perineum Skin , External Approach DR FRANCY SHEPHERD Start: 03-30-2021 Introduction of Horm one into Female Reproductive, Via Natural or Artificial Opening DR FRANCY SHEPHERD Plan of Treatment Date Care Activity Detail Author Start: 01-03-2027 Screening for malign ant neoplasm of cervix [facility] Start: 08-29-2026 Screening for malign ant neoplasm of cervix Pap Smear [facility] Start: 03-24-2024 End: 03-24-2024 Patient encounter procedure 03/24/2024 9:30 AM EST Office Visit [facility] [address] [place] [address] Irvin Ahn DO [address] [place] [address] Arrived [facility] Comment on above: Arrived Start: 10-21-2023 Influenza vaccination Influenza Vacc ine (#1) [facility] Immunizations Immunization Date Immunization Notes Care Provider Fa cility 12-26-2022 influenza, injectabl e, quadrivalent, preservative free Irvin Ahn DO Work Phone: [facility] 12-26-2022 influenza virus vacc ine, unspecified formulation Irvin Ahn DO Work Phone: [facility] Healthcare Payers Date Payer Category Payer Private Health Insurance [employer] [id number] 1986 Unknown [id number] [id number]. 593 1986 Unknown [id number] 2.16.840.1.937672.3.579.2. 593 1986 Unknown [id number] 2.16.840.1.951405.3.579.2. 593 1986 Unknown [id number] 2.16.840.1.336480.3.579.2. 593 1986 Unknown [id number] 2.16.840.1.109289.3.579.2. 593 1986 Unknown [id number] 2.16.840.1.678566.3.579.2. 593 1986 Unknown [id number] 2.16.840.1.042728.3.579.2. 593 1986 Unknown [id number] 2.16.840.1.260674.3.579.2. 1259 1986 Unknown [id number] 2.16.840.1.092920.3.579.2. 1259 1986 Unknown [id number] 2.16.840.1.544063.3.579.2. 1259 1986 Unknown [id number] 2.16.840.1.552005.3.579.2. 1259 1986 Unknown [id number] 2.16.840.1.302324.3.579.2. 1259 1986 Unknown [id number] 2.16.840.1.768909.3.579.2. 1259 1959 Unknown [id number] 1959 Unknown [id number] Social History Date Type Detail Facility Tobacco smoking stat [facility] Unknown if ever smoked [facility] Work Phone: Start: 02-22-2024 Sex Female (finding) [facility] Start: 1985 Sex Assigned At Female F [facility] Start: 12-29-2022 Tobacco smoking stat [facility] Ex-smoker [facility] End: 02-20-2016 History of tobacco use Current smoker [facility] End: 02-20-2016 History of tobacco use Cigarette Smoker [facility] Start: 12-29-2022 Tobacco use and exposure Smoke less tobacco non-user [facility] Start: 08-30-2023 Alcoholic beverage intake Curr ent drinker of alcohol (finding) [facility] Start: 12-20-2022 End: 08-30-2023 Alcoholic beverage intake [facility] Start: 12-20-2022 End: 08-30-2023 Humiliation, Afraid, Rape, and Kick questionnaire [HARK] [facility] Within the last year , have you been afraid of your partner or ex-partner? No [facility] Are you now , , , , never or living with a partner? [facility] How often to you hav e a drink containing alcohol? 2-4 times a month [facility] How many standard dr inks containing alcohol do you have on a typical day? 3 or 4 [facility] How often do you hav e 6 or more drinks on 1 occasion? Less than monthly [facility] How hard is it for y ou to pay for the very basics like food, housing, medical care, and heating Not hard at all [facility] Do you feel stress - tense, restless, nervous, or anxious, or unable to sleep at night because your mind is troubled all the time - these days [OSQ] Only a little [facility] (I/We) worried wheth er (my/our) food would run out before (I/we) got money to buy more. Never true [facility] Start: 12-29-2022 Alcohol Comment caffeine: couple/wee k [facility] Start: 1985 Sex assigned at Not on file [facility] Evaluation note Note Date & Type Note Facility Evaluation note No assessment information availa [facility] Work Phone: Summary Purpose Family History No Family History Records FoundNo Family History Records Found Advance Directives Advance Directive Response Recorded Date/ Time Advance Directives No February 22, 2024 9:13am Documents on File Type Date Recorded Patient Shipping And Receiving Assistant Expl anation Advance Directives and Living Will 09/13/2018 2018-09-13 insurance card and status Chief Complaint and Reason for Visit Chief Complaint Admit Date Cough, congestion February 22, 2024 9: 15am Additional Source Comments INFORMATION SOURCE (unrecogn ized section and content) DATE CREATED AUTHOR 01/11/2022 [facility] [employer] DATE CREATED AUTHOR AUTHOR'S ROMEOIZ ATANTONIETA 09/05/2023 [facility] EPIC Care Teams (unrecognized sec tion and content) Team Status: Active Member Role Status Dates Lois Corcoran APRN REGULATORY AND COMPLIANCE TECHNICIAN-C Primary Care Provider Active Team Status: Inactive Member Role Status Dates Susan Coreas APRN Attending Provider Active Start: February 22, 2024 End: February 22, 2024 Lois Corcoran APRN REGULATORY AND COMPLIANCE TECHNICIAN-C Primary Care Provider Active Start: February 22, 2024 End: February 22, 2024 Optical Scientist Relationship Specialty Start Date End Date Kenya Lewis MD [address] [place] [address] PCP - General Family Medicine 06/27/22 Goals (unrecognized section and content) Goals may be documented in a n alternate section FOR RECORDS PERTAINING TO PATIENTS WHO ARE [...] BE BASED ON THE PRIMARY CLINICAL RECORDS. [facility]. provides no warranty or guarantee of the accuracy or completeness of information in this document.
[2024-03-31 10:07] LABS: Age Gdln ACOG Testing Note (.); HPV Aptima Negative (Negative); IGP, Aptima HPV, rfx 16/18,45 Note (.)
== END 2024-03-24 21:37 | disposition home or self-care (01) ==
LOC: LAB 21:36
PROVIDERS: Visit Provider Obstetrics & Gynecology
DX: Z01.419 Encounter for gynecological examination (general) (routine) without abnormal findings (principal)
CPT/HCPCS: 87624; 88175